=== PATIENT | male | born 1970 | race Caucasian/White ===

== ENCOUNTER 2018-04-27 15:04 | Day surgery (SDC) | payer MEDICAID ==
--- NOTE | 2018-04-27 08:31 | PDGENHP ---
History & Physical Chief Complaint: Right fifth metatarsal base fracture History of Present Illness: Johan is a pleasant 47 year old male who presented to our office 5 weeks ago with fifth metatarsal base Holley fracture. He had been NWB in the boot and returned to our office. Radiographs taken show displacement of fracture with no significant callous formation. Risks, benefits , and alternatives to continued boot immobilization vs surgical intervention were discussed and patient would like to proceed with sugical intervention. Pertinent Past, Social, Family History: PMH: depression, GERD, hernia. Social history: former smoker. Family history: non-contributory Relevant Physical Exam: Upon evaluation of the right foot, he does have mild swelling overlying the fifth metatarsal base. He is point tender overlying the fifth metarsal base. Nontender throughout the rest of the forefoot and midfoot. Mild pain with passive inversion of the foot as well as active eversion. NV intact RLE Cardiorespiratory Assessment: RRR, CTAB
[2018-04-27] MEDS ORDERED: CLINDAMYCIN 900 MG/DEXTROSE 50 ML IV ONE (15:26)
[2018-04-27] MEDS ORDERED: LR 1,000 ML IV ONE (15:32)
[2018-04-27] MEDS ORDERED: HYDROmorphONE/DILAUDID 2 MG/ML INJ IVP PRN (16:59)
[2018-04-27] MEDS ORDERED: ACETAMINOPHEN 500 MG TAB PO PRN (16:59)
[2018-04-27] MEDS ORDERED: NALOXONE HCL 0.4 MG/ML INJ IVP PRN (16:59)
[2018-04-27] MEDS ORDERED: ONDANSETRON 4 MG/2 ML VIAL IVP PRN ×2 (16:59→17:57)
[2018-04-27] MEDS ORDERED: ALBUTEROL 3 ML DEYVIAL IH PRN (16:59)
[2018-04-27] MEDS ORDERED: DEXAMETHASONE 4 MG/ML VIAL IVP PRN (16:59)
[2018-04-27] MEDS ORDERED: MIDAZOLAM 2 MG/2 ML VIAL IVP ONE (16:59)
[2018-04-27] MEDS ORDERED: oxyCODONE IR 5 MG TAB PO PRN (16:59)
--- NOTE | 2018-04-27 16:59 | PDANEPAE ---
ANE History of Present Illness R 5th Metatarsal ANE Past Medical History - Cardiovascular History Hx Hypertension: No Hx Arrhythmias: No Hx Chest Pain: No Hx Coronary Artery / Peripheral Vascular Disease: No Hx CHF / Valvular Disease: No Hx Palpitations: No - Pulmonary History Hx COPD: No Hx Asthma/Reactive Airway Disease: No Hx Recent Upper Respiratory Infection: No Hx Oxygen in Use at Home: No Hx Sleep Apnea: No Sleep Apnea Screening Result - Last Documented: Negative - Neurologic History Hx Cerebrovascular Accident: No Hx Seizures: No Hx Dementia: No - Endocrine History Hx Diabetes: No - Renal History Hx Renal Disorders: No - Liver History Hx Hepatic Disorders: No - Neurological & Psychiatric Hx Hx Neurological and Psychiatric Disorders: Yes Neurological / Psychiatric History Comment: depression, anxiety - Cancer History Hx Cancer: No - Congenital Disorder History Hx Congenital Disorders: No - GI History Hx Gastrointestinal Disorders: Yes Gastrointestinal History Comment: GERD - Other Health History Other Health History: none - Chronic Pain History Chronic Pain: No (back pain but not chronic) - Surgical History Prior Surgeries: umbilical hernia repair. tonsillectomy. colonoscopies x 2 ANE Review of Systems Review of Systems: - Exercise capacity METS (RN): 5 METS ANE Patient History - Allergies Allergies/Adverse Reactions: Penicillins Allergy (Verified 04/26/18 11:44) not sure reaction, was since a small child - Home Medications Home Medications: Calcium 04/26/18 [Last Taken 2 Days Ago ~04/25/18] Omeprazole 04/26/18 [Last Taken 1 Day Ago ~04/26/18] Vitamin C 04/26/18 [Last Taken 2 Days Ago ~04/25/18] Vitamin D3 04/26/18 [Last Taken 2 Days Ago ~04/25/18] Vitamin K2 04/26/18 [Last Taken 2 Days Ago ~04/25/18] - NPO status NPO Since - Liquids (Date): 04/27/18 NPO Since - Liquids (Time): 12:30 NPO Since - Solids (Date): 04/27/18 NPO Since - Solids (Time): 06:30 - Smoking Hx Smoking Status: Former smoker - Family Anes Hx Family Hx Anesthesia Complications: none ANE Labs/Vital Signs - Vital Signs Blood Pressure: 127/92 Heart Rate: 78 Respiratory Rate: 15 O2 Sat (%): 97 Height: 177.8 cm Weight: 79.379 kg ANE Physical Exam - Airway Neck exam: FROM Mallampati Score: Class 2 Mouth exam: normal dental/mouth exam - Pulmonary Pulmonary: clear to auscultation - Cardiovascular Cardiovascular: regular rate and rhythym - ASA Status ASA Status: I ANE Anesthesia Plan Anesthesia Plan: general endotracheal anesthesia
[2018-04-27] MEDS ORDERED: BUPIVACAINE 0.5% 30 ML SDV ONE (17:02)
[2018-04-27] MEDS ORDERED: BACITRACIN 50,000 UNITS/10 ML SYR IRR ONE (17:03)
[2018-04-27] MEDS ORDERED: POLYMYXIN B SULFATE 500,000 UNIT/10 ML SYR IRR ONE (17:03)
[2018-04-27] MEDS ORDERED: PROPOFOL 200 MG/20 ML VIAL ONE (17:08)
[2018-04-27] MEDS ORDERED: DEXAMETHASONE 4 MG/ML VIAL ONE (17:08)
[2018-04-27] MEDS ORDERED: ONDANSETRON 4 MG/2 ML VIAL ONE (17:08)
[2018-04-27] MEDS ORDERED: LIDOCAINE 2% 2 ML INJ ONE ×2 (17:09)
[2018-04-27] MEDS ORDERED: fentaNYL 100 MCG/2 ML INJ ONE ×3 (17:10→18:38)
[2018-04-27] MEDS ORDERED: ONDANSETRON DISINTEGRATING 4 MG TAB PO PRN (17:57)
--- NOTE | 2018-04-27 18:00 | POSTOPPROG ---
Post Op Note Date of Operation: 04/27/18 Surgeon: Myron Smith Electrostatic Painter: Nabila Stark Anesthesiologist: Shane Anesthesia: GET(General Endotracheal) Pre-op Diagnosis: Right fifth metatarsal fracture Post-op Diagnosis: Right fifth metatarsal fracture Procedure: ORIF right fifth metatarsal fracture Inf/Abcess present in the surg proc area at time of surgery?: No Depth: Superfical (Skin SQ) EBL: Minimal
--- NOTE | 2018-04-27 18:01 | POSTANESTH ---
Post Anesthetic Evaluation Cardiovascular Status: Normal, Stable Respiratory Status: Normal, Stable Level of Consciousness/Mental Status: Can Participate in Eval, Mildly Sleepy, Arousable Pain Control: Adequate, Prn Tx Ordered Nausea/Vomiting Control: Adequate, Prn Tx Ordered Complications Possibly Related to Anesthesia: None Noted
[2018-04-27] MEDS ORDERED: HYDROCODONE/APAP 5/325 TAB ONE (18:11)
[2018-04-27] MEDS: fentaNYL 100 MCG/2 ML INJ IVP PRN ×3 (18:13→18:40)
[2018-04-27] MEDS ORDERED: OXYCODONE/APAP 5/325 TAB ONE (18:19)
[2018-04-27] MEDS: OXYCODONE/APAP 5/325 TAB PO PRN ×2 (18:20→18:58)
[2018-04-27 18:44] VITALS: BP 120/87
--- NOTE | 2018-04-28 05:15 | GOP ---
DATE OF OPERATION: 04/27/2018 SURGEON: Myron Smith MD CHAIN MAKER HAND: Nabila Solorio. ANESTHESIA: General. ANESTHESIOLOGIST: Damian Lynn DO PREOPERATIVE DIAGNOSIS: Displaced base of fifth metatarsal fracture on the right foot. POSTOPERATIVE DIAGNOSIS: Displaced base of fifth metatarsal fracture on the right foot. PROCEDURE PERFORMED: Open reduction, internal fixation, fifth metatarsal fracture, right foot. FINDINGS: ESTIMATED BLOOD LOSS: Minimal. DESCRIPTION OF PROCEDURE: After appropriate informed consent was obtained, the patient was taken to the operating room, placed supine on the operating table. A time-out was performed. The patient was identified, correct site was identified, matched with the radiographs available in the room. He rec eived 900 mg of clindamycin due to his penicillin allergy. Right foot was prepped and draped in usua l sterile fashion. I exsanguinated the limb, inflated the tourniquet to 250 mmHg. I made an incisio n about 2 cm proximal to the base of the fifth metatarsal head, avoiding the peroneal tendons. I was able to get a guidewire from the tip of the fifth metatarsal into the shaft. This was confirmed wit h AP lateral fluoroscopic imaging. We then drilled the near cortex and then tapped to 4.5, to the de pth of 50 mm. I then chose a 5.5 mm partially threaded screw and gently compressed the fracture and confirmed its position with both AP and lateral fluoroscopic imaging. The wound was irrigated, close d with 2-0, Vicryl 3-0 Monocryl, and Dermabond. I instilled 20 mL of 0.5% Marcaine plain around the incision. Soft sterile dressing was applied. The patient was awakened from anesthesia, taken to the recovery room in satisfactory condition. There were no immediate intraoperative complications. Loyda Solorio's assistance was required throughout the entire case. TOTAL TOURNIQUET TIME: 26 minutes. IMPLANTS USED: Arthrex 5.5 mm partially threaded 50 mm long screw. COMPLICATIONS: None. DRAINS: None. HISTORY: The patient is a 47-year-old male who, about a week and a half ago, had a twisting injury w hile hiking and sustained a fifth metatarsal fracture. Initially, this was nondisplaced, however, it went on to displaced, and the decision was made to proceed with open reduction, internal fixation. /[id number]/MODL
== END 2018-04-27 19:30 | disposition home or self-care (01) ==
LOC: FSGY 15:04
PROVIDERS: ATTEND Orthopaedic Surgery
PROC: 0QSN04Z Reposition Right Metatarsal with Internal Fixation Device, Open Approach (ICD-10-PCS; principal; 2018-04-27 16:15)
DX: S92.351A Displaced fracture of fifth metatarsal bone, right foot, initial encounter for closed fracture (principal); X58.XXXA Exposure to other specified factors, initial encounter; F32.9 Major depressive disorder, single episode, unspecified; K21.9 Gastro-esophageal reflux disease without esophagitis; Z87.891 Personal history of nicotine dependence
CPT/HCPCS: C1713; J1100; J2250; J2405; J2704; J3010